=== PATIENT | female | born 1995 | race Caucasian/White ===

== ENCOUNTER 2019-07-15 14:38 | Emergency (ER) | payer MEDICAID ==
[~2019-07-15] VITALS: Ht 165.1 cm; Wt 81.4 kg
[~2019-07-15 14:38] MED LIST: IBUP-1542 PO
[2019-07-15 14:41] VITALS: BP 129/74; PULSE 135; RESP 22; Ht 165.1 cm; Wt 81.4 kg
== END 2019-07-15 17:29 | disposition left against medical advice (07) ==
LOC: FTE 14:38
DX: R09.89 Other specified symptoms and signs involving the circulatory and respiratory systems (principal)
CPT/HCPCS: 70360